=== PATIENT | female | born 1945 | race Caucasian/White ===

== ENCOUNTER 2017-10-31 15:03 | Emergency (ER) | payer MEDICARE, OTHER | END 2017-10-31 18:10 | disposition home or self-care (01) | LOC: FTE 15:03 | DX: H92.02 Otalgia, left ear (principal); I25.10 Atherosclerotic heart disease of native coronary artery without angina pectoris; E11.9 Type 2 diabetes mellitus without complications; Z79.4 Long term (current) use of insulin; Z79.82 Long term (current) use of aspirin; Z79.84 Long term (current) use of oral hypoglycemic drugs; Z98.61 Coronary angioplasty status | CPT/HCPCS: 99283 ==

== ENCOUNTER 2017-12-12 13:42 | Emergency (ER) | payer MEDICARE, OTHER | END 2017-12-12 20:15 | disposition home or self-care (01) | LOC: FTE 13:42 | DX: M79.672 Pain in left foot (principal); I25.10 Atherosclerotic heart disease of native coronary artery without angina pectoris; Z79.82 Long term (current) use of aspirin; Z79.84 Long term (current) use of oral hypoglycemic drugs | CPT/HCPCS: 36415; 73630-LT; 99283-25 ==